=== PATIENT | male | born 1940 ===

== ENCOUNTER 2017-05-01 10:01 | Emergency (ER) | payer OTHER ==
[~2017-05-01] VITALS: Ht 180.3 cm; Wt 81.6 kg
[2017-05-01] MEDS ORDERED: NEURONTIN800 MG (10:10)
[2017-05-01] MEDS ORDERED: TAMS0.4C (10:10)
[2017-05-01] MEDS ORDERED: TRICOR48 MG (10:10)
[2017-05-01] MEDS ORDERED: DIOVAN40 MG (10:11)
[2017-05-01] MEDS ORDERED: XANAX0.25 MG (10:11)
[2017-05-01] MEDS ORDERED: METOPROLOL SUCC25 MG (10:11)
[2017-05-01] MEDS ORDERED: ZANTAC300 MG (10:11)
[2017-05-01] MEDS ORDERED: DEXILANT30 MG (10:11)
== END 2017-05-01 18:20 | disposition home or self-care (01) ==
LOC: ER 10:01
DX: K29.70 Gastritis, unspecified, without bleeding (principal); R10.13 Epigastric pain; M54.5 Low back pain